=== PATIENT | male | born 1970 | race Caucasian/White ===

== ENCOUNTER 2017-02-20 19:12 | Emergency (ER) | payer OTHER ==
[~2017-02-20] VITALS: Ht 182.9 cm; Wt 89.4 kg
[2017-02-20 19:27] VITALS: BP 131/73; RESP 20; TEMP 97.9; O2SAT 98
--- NOTE | 2017-02-20 20:35 | RADRPT ---
EXAM DATE/TIME: 02/20/2017 20:20 [place] COMPARISON: No previous studies available for comparison. INDICATIONS : Pain in foot. MEDICAL HISTORY : None. SURGICAL HISTORY : None. ENCOUNTER: Initial ACUITY: 1 day PAIN SCORE: 8/10 LOCATION: Left foot. Plantar MTPJ FINDINGS: There is an acute oblique fracture involving the midshaft of the left 4th proximal phalanx. Minimal displacement is noted. There is a tiny Achilles calcaneal spur. CONCLUSION: 1. Acute oblique minimally displaced fracture involving the midshaft of the left 4th proximal phalan x. 2. Tiny Achilles calcaneal spur. Chinedu Osman MD on February 20, 2017 at 20:31 Board Certified Radiologist. This report was verified electronically.
--- NOTE | 2017-02-20 20:46 | PD ---
HPI Chief Complaint: Injury Time Seen by Provider: 19:59 Travel History International Travel<30 days: No Contact w/Intl Traveler<30days: No Traveled to known affect area: No History of Present Illness HPI 46-year-old male presents to the emergency room for evaluation of left fourth toe pain and swelling after injuring it just prior to arrival. Patient was running around the house with his son when he ran into his son and then his toe backwards. Since then he has had severe pain especially in the fourth toe. Pain radiates into the third and fifth toe. He states he is concerned because it feels like his foot is broken on the bottom aspect. He cannot apply weight unless it is on his heel. He took 2 Aleve just prior to arrival with moderate relief in symptoms. Denies paresthesias. No chronic medical conditions or daily medications. COUNT INCLUDES THE [facility] Past Surgical History Cholecystectomy: Yes (1995) Social History Alcohol Use: No Tobacco Use: No Substance Use: No Allergies-Medications (Allergen,Severity, Reaction): Coded Allergies: codeine (Unverified Allergy, Severe, UNKNOWN, 02/20/17) Reported Meds & Prescriptions Reported Meds & Active Scripts Active No Active Prescriptions or Reported Medications Review of Systems Except as stated in HPI: all other systems reviewed are Neg Physical Exam Narrative GENERAL: Well-nourished, well-developed male in no acute distress. Afebrile. Ambulatory. SKIN: Focused skin assessment warm/dry. Moderate ecchymosis of the left fourth proximal toe. HEAD: Normocephalic. EYES: No scleral icterus. No injection or drainage. NECK: Supple, trachea midline. No JVD or lymphadenopathy. CARDIOVASCULAR: Regular rate and rhythm without murmurs, gallops, or rubs. RESPIRATORY: Breath sounds equal bilaterally. No accessory muscle use. MUSCULOSKELETAL: No cyanosis. Mild edema of the left fourth toe with extreme tenderness to palpation. Less than 2 second capillary refill distally. Full range of motion of the foot. Tenderness to palpation of the distal, plantar foot. Data Data Last Documented VS Vital Signs Date Time Temp Pulse Resp B/P (MAP) Pulse Ox O2 Delivery O2 Flow Rate FiO2 02/20/17 19:27 97.9 20 131/73 (92) 98 Orders Orders Foot, Complete ([id number]) (02/20/17 ) [facility] Medical Decision Making Medical Screen Exam Complete: Yes Emergency Medical Condition: Yes Medical Record Reviewed: Yes Differential Diagnosis Toe fracture, sprain, spasm, contusion Narrative Course 46-year-old male presents to the emergency room for evaluation of left fourth toe pain and swelling after injury just prior to arrival. Patient states he ran into his son and has had severe pain especially with ambulation. Pain is localized to the fourth toe as well as the distal plantar foot. There is moderate edema and ecchymosis of the left fourth toe. X-ray of the foot shows nondisplaced left fourth toe fracture. Toe was ginger taped to the third toe and patient was discharged with postop shoe. Declined crutches. Told to follow up with her primary care physician or return for worsening symptoms. He understands and agrees to plan. Diagnosis Primary Impression: Fracture of fourth toe, left, closed Qualified Codes: S92.502A - Displaced unspecified fracture of left lesser toe( s), initial encounter for closed fracture Referrals: Primary Care Physician Additional Instructions: Rest and drink plenty of fluids. Ginger tape and postop shoe for 4-6 weeks Take ibuprofen with food as directed, as needed for pain. Apply ice to the affected area for 20 minutes at a time, as needed for pain and swelling. Follow-up with a primary care physician. Return to the emergency room for worsening symptoms. Scripts No Active Prescriptions or Reported Meds Disposition: 01 DISCHARGE HOME Condition: Stable Cecilia Machuca Feb 20, 2017 20:45
== END 2017-02-20 20:58 | disposition home or self-care (01) ==
LOC: PHEFT 19:12
DX: S92.512A Displaced fracture of proximal phalanx of left lesser toe(s), initial encounter for closed fracture (principal); W51.XXXA Accidental striking against or bumped into by another person, initial encounter; Y93.02 Activity, running; Y92.009 Unspecified place in unspecified non-institutional (private) residence as the place of occurrence of the external cause
CPT/HCPCS: 73630; 99283